=== PATIENT | female | born 1990 | race Caucasian/White ===

== ENCOUNTER 2018-03-27 09:51 | Outpatient (CLI) | payer OTHER | END 2018-03-27 12:50 | disposition home or self-care (01) | LOC: OBT 09:51 → L-D 09:51 → OBT 12:50 | DX: O36.8130 Decreased fetal movements, third trimester, not applicable or unspecified (principal); Z3A.38 38 weeks gestation of pregnancy | CPT/HCPCS: 76815; 76818 ==

== ENCOUNTER 2018-03-28 03:40 | Inpatient (IN) | payer OTHER ==
[2018-03-28 04:40] LABS: ADD UMIC YES; UR ASCORBIC ACID NEGATIVE (NEGATIVE); UR BILIRUBIN (Dip) NEGATIVE (NEGATIVE); UR BLOOD (Dip) 2+ mg/dL (NEGATIVE); UR CLARITY CLOUDY (CLEAR); UR COLOR YELLOW (YELLOW); UR GLUCOSE (Dip) NEGATIVE (NEGATIVE); UR KETONES (Dip) NEGATIVE (NEGATIVE); UR LEUKOCYTE ESTERASE (Dip) 3+ Leu/ul (NEGATIVE); UR NITRITE (Dip) NEGATIVE (NEGATIVE); UR RBC 85 /HPF (0-5); UR SPECIFIC GRAVITY (Dip) 1.015 (1.003-1.030); UR SQUAMOUS EPITHELIAL CELL FEW /HPF (FEW); UR TOTAL PROTEIN (Dip) NEGATIVE (NEGATIVE); UR UROBILINOGEN (Dip) NEGATIVE (NEGATIVE); UR WBC 76 /HPF (0-5)
[2018-03-28] MEDS: LACTATED RINGER'S 1,000 ML IV ×5 (05:40→19:26)
[2018-03-28] MEDS: ONDANSETRON 4 MG INJ IV (05:40)
[2018-03-28] MEDS: ACETAMINOPHEN 1000MG/100ML IV 100 ML IVPB (05:58)
[2018-03-28 06:04] LABS: ADD MAN DIFF? NO
[2018-03-28 06:11] LABS: BASOPHIL # 0.1 10^3/ul (0.0-0.1); BASOPHILS % 0.4 % (0.0-2.0); EOSINOPHILS % 0.3 % (0.0-7.0); HEMATOCRIT 39.1 % (37.0-47.0); HEMOGLOBIN 12.6 g/dl (12.0-16.0); LYMPHOCYTES # 1.3 10^3/ul (0.8-2.9); LYMPHOCYTES % 9.8 % (15.0-51.0); MEAN CORPUSCULAR HEMOGLOBIN 27.9 pg (29.0-33.0); MEAN CORPUSCULAR HGB CONC 32.2 g/dl (32.0-37.0); MEAN CORPUSCULAR VOLUME 86.7 fl (82.0-101.0); MEAN PLATELET VOLUME 9.7 fl (7.4-10.4); MONOCYTE # 0.7 10^3/ul (0.3-0.9); MONOCYTES % 5.5 % (0.0-11.0); NEUTROPHIL # 10.8 10^3/ul (1.6-7.5); NEUTROPHILS % 82.8 % (39.0-77.0); PLATELET COUNT 318 10^3/UL (140-415); RED BLOOD COUNT 4.51 10^6/ul (4.20-5.40); RED CELL DISTRIBUTION WIDTH 13.1 % (11.5-14.5)
[2018-03-28 06:33] LABS: ALANINE AMINOTRANSFERASE 13 IU/L (13-69); ALBUMIN 3.4 g/dl (3.3-4.9); ALBUMIN/GLOBULIN RATIO 0.89; ALKALINE PHOSPHATASE 176 IU/L (42-121); ANION GAP 10 (5-13); ASPARTATE AMINO TRANSFERASE 17 IU/L (15-46); BILIRUBIN,INDIRECT 0.1 mg/dl (0-1.1); BILIRUBIN,TOTAL 0.1 mg/dl (0.2-1.3); BLOOD UREA NITROGEN 9 mg/dl (7-20); CALCIUM 9.1 mg/dl (8.4-10.2); CARBON DIOXIDE 22 mmol/L (21-31); CHLORIDE 104 mmol/L (97-110); Estimated GFR > 60 mL/min (>60); GLUCOSE 102 mg/dl (70-220); SODIUM 136 mmol/L (135-144); TOTAL PROTEIN 7.2 g/dl (6.1-8.1)
[2018-03-28] MEDS ORDERED: CARBOPROST 250 MCG INJ IM (07:30)
[2018-03-28] MEDS ORDERED: OXYTOCIN 30 UNITS/LR 500 ML IV (07:30)
[2018-03-28] MEDS ORDERED: IBUPROFEN 600 MG TAB PO (07:30)
[2018-03-28] MEDS ORDERED: BUTORPHANOL 2 MG INJ IV (07:30)
[2018-03-28] MEDS ORDERED: LIDOCAINE 1% (MPF) 30 ML INJ INJ (07:30)
[2018-03-28] MEDS ORDERED: MISOPROSTOL 200 MCG TAB PR (07:30)
[2018-03-28] MEDS: AMPICILLIN 2 GM/NS (PMX) 100 ML IV (07:57)
[2018-03-28 08:26] LABS: INR 0.85; PROTIME 11.7 Sec (11.9-14.9); PT RATIO 0.9
[2018-03-28 08:27] LABS: PARTIAL THROMBOPLASTIN TIME 26.9 Sec (23.0-35.0)
[2018-03-28 09:06] LABS: HEPATITIS B SURFACE ANTIGEN NEGATIVE (NEGATIVE)
[2018-03-28] MEDS ORDERED: NALOXONE (0.4 MG/ML) INJ IV (09:30)
[2018-03-28] MEDS ORDERED: ONDANSETRON 4 MG INJ IV (09:30)
[2018-03-28] MEDS: OXYTOCIN 30 UNITS/LR 500 ML IV (11:05)
[2018-03-28] MEDS: AMPICILLIN 1 GM/NS (PMX) 50 ML IV ×2 (12:13→19:25)
[2018-03-28 15:20] LABS: RAPID PLASMA REAGIN NONREACTIVE (NR)
[2018-03-28] MEDS: FENTAnyl 2MCG/ML-ROPIV 0.2% 100 ML BAG EPI (19:25)
[2018-03-29] MEDS: LACTATED RINGER'S 1,000 ML IV (00:01)
[2018-03-29] MEDS: AMPICILLIN 1 GM/NS (PMX) 50 ML IV ×3 (03:38→07:28)
[2018-03-29] MEDS: FENTAnyl 2MCG/ML-ROPIV 0.2% 100 ML BAG EPI (05:18)
[2018-03-29] MEDS: METHYLERGONOVINE 0.2 MG INJ IM (07:57)
[2018-03-29] MEDS: ONDANSETRON 4 MG INJ IV (08:44)
[2018-03-29] MEDS: OXYTOCIN 30 UNITS/LR 500 ML IV ×3 (08:46→11:44)
[2018-03-29] MEDS ORDERED: MISOPROSTOL 200 MCG TAB PR (10:00)
[2018-03-29] MEDS ORDERED: NACL 0.9% 3 ML SYG IV (10:00)
[2018-03-29] MEDS ORDERED: CARBOPROST 250 MCG INJ IM (10:00)
[2018-03-29] MEDS ORDERED: SENNA/DOCUSATE NA (8.6MG/50MG) TAB PO (10:00)
[2018-03-29] MEDS ORDERED: METHYLERGONOVINE 0.2 MG INJ IM (10:00)
[2018-03-29] MEDS ORDERED: OXYTOCIN 30 UNITS/LR 500 ML IV (10:00)
[2018-03-29] MEDS ORDERED: ZOLPIDEM 5 MG TAB PO (10:00)
[2018-03-29] MEDS: SENNA/DOCUSATE NA (8.6MG/50MG) TAB PO ×2 (10:34→21:08)
[2018-03-29] MEDS: OXYCODONE/ASPIRIN (4.88/325) TAB PO (10:35)
[2018-03-29] MEDS: BENZOCAINE 20% 56 ML SPRAY TOP (10:36)
[2018-03-29] MEDS: WITCH HAZEL/GLYCERIN PAD PR (10:36)
[2018-03-29] MEDS: IBUPROFEN 600 MG TAB PO ×2 (12:42→17:28)
[2018-03-30] MEDS: IBUPROFEN 600 MG TAB PO ×5 (00:30→23:31)
[2018-03-30 08:30] LABS: ADD MAN DIFF? NO
[2018-03-30 08:36] LABS: WHITE BLOOD COUNT 10.1 10^3/ul (4.8-10.8)
[2018-03-30 08:36] LABS: BASOPHILS % 0.3 % (0.0-2.0); EOSINOPHILS # 0.1 10^3/ul (0.0-0.5); EOSINOPHILS % 1.4 % (0.0-7.0); HEMATOCRIT 31.2 % (37.0-47.0); LYMPHOCYTES # 1.7 10^3/ul (0.8-2.9); LYMPHOCYTES % 17.2 % (15.0-51.0); MEAN CORPUSCULAR HEMOGLOBIN 28.2 pg (29.0-33.0); MEAN CORPUSCULAR HGB CONC 32.1 g/dl (32.0-37.0); MEAN CORPUSCULAR VOLUME 87.9 fl (82.0-101.0); MEAN PLATELET VOLUME 9.6 fl (7.4-10.4); MONOCYTE # 0.9 10^3/ul (0.3-0.9); MONOCYTES % 8.5 % (0.0-11.0); NEUTROPHIL # 7.3 10^3/ul (1.6-7.5); NEUTROPHILS % 71.8 % (39.0-77.0); PLATELET COUNT 260 10^3/UL (140-415); RED BLOOD COUNT 3.55 10^6/ul (4.20-5.40); RED CELL DISTRIBUTION WIDTH 13.2 % (11.5-14.5)
[2018-03-30] MEDS: SENNA/DOCUSATE NA (8.6MG/50MG) TAB PO ×2 (09:01→20:50)
[2018-03-31] MEDS: IBUPROFEN 600 MG TAB PO ×2 (05:34→13:37)
[2018-03-31] MEDS: LANOLIN HPA 1 PKT TOP (08:50)
[2018-03-31] MEDS: SENNA/DOCUSATE NA (8.6MG/50MG) TAB PO (08:51)
[2018-03-31] MEDS: DIPHTH/TET/ACEL PERTUSS (ADULT) 0.5 ML VIAL IM* (09:00)
== END 2018-03-31 16:00 | disposition home or self-care (01) | DRG 807 ==
LOC: OBT 03:40 → PP1 03-29 11:53 → L-D 03:40 → OBT 06:40 → L-D 06:40
PROC: 10E0XZZ Delivery of Products of Conception, External Approach (ICD-10-PCS; principal; 2018-03-29)
DX: O69.81X0 Labor and delivery complicated by cord around neck, without compression, not applicable or unspecified (principal); Z37.0 Single live birth; Z3A.39 39 weeks gestation of pregnancy
CPT/HCPCS: 36415; 62319; 76705; 76816; 80053; 81001; 85025; 85610; 85730; 86592; 86850; 86900; 86901; 87340; 96360; 96365; 96374